=== PATIENT | female | born 1955 ===

== ENCOUNTER 2018-03-22 17:59 | Emergency (ER) | payer MEDICARE, OTHER ==
[2018-03-22 18:11] VITALS: BMI 27.3
--- NOTE | 2018-03-22 19:41 | C.PDOC ---
History Of Present Illness 62 year old female presents to ED for evaluation after a fall that occurred earlier today. Patient reports walking on the street when she tripped and fell forward, landing on her left side. Although she says she fell on her left side, she is currently complaining of right shoulder, right elbow, right lower rib pain. Patient denies head injury, loss of consciousness, neck pain, chest pain, dizziness, palpitations. Time Seen by Provider: 03/22/18 18:52 Chief Complaint (Nursing): Upper Extremity Problem/Injury History Per: Patient History/Exam Limitations: no limitations Onset/Duration Of Symptoms: Hrs Current Symptoms Are (Timing): Still Present Quality: "Pain" Severity: Moderate Past Medical History Reviewed: Historical Data, Nursing Documentation, Vital Signs Vital Signs: Last Vital Signs Temp 98.5 F 03/22/18 18:11 Pulse 121 H 03/22/18 18:11 Resp 20 03/22/18 18:11 BP 167/96 H 03/22/18 18:11 Pulse Ox 94 L 03/22/18 18:11 - Medical History PMH: Anxiety, Asthma, Bronchitis, COPD (RECENT EXACERBATION WAS RXED IV AB), Diabetes, HTN, Pneumonia (STREPT), TIA Surgical History: Cholecystectomy - [facility] Procedures EXCISION OF POST NECK SUBCU/FASCIA, OPEN APPROACH (03/15/16) OTHER SKIN & SUBQ I D (02/01/14) VENOUS CATHETERIZATION NEC (11/01/13) Family History: States: No Known Family Hx - Social History Hx Tobacco Use: No Hx Alcohol Use: No Hx Substance Use: No - Immunization History Hx Tetanus Toxoid Vaccination: No Hx Influenza Vaccination: No Hx Pneumococcal Vaccination: Yes Review Of Systems Constitutional: Negative for: Fever, Chills Cardiovascular: Negative for: Chest Pain, Palpitations Musculoskeletal: Positive for: Shoulder Pain (Right shoulder), Arm Pain (Right elbow), Other (Right lower rib pain). Negative for: Neck Pain Neurological: Positive for: Other (No loss of consciousness, no head injury). Negative for: Weakness, Numbness, Headache, Dizziness Physical Exam - Physical Exam Appears: Well, Non-toxic, Other (In mild pain) Skin: Warm, Dry Head: Atraumatic, Normacephalic Eye(s): bilateral: Normal Inspection, PERRL, EOMI Oral Mucosa: Moist Neck: Supple Cardiovascular: Rhythm Regular ( tachycardic (chronic) ) Respiratory: Normal Breath Sounds, No Rales, No Rhonchi, No Wheezing Gastrointestinal/Abdominal: Normal Exam, Bowel Sounds, Soft, No Tenderness Extremity: Normal ROM, Tenderness (Tenderness to palpitation to right anterior shoulder, right proximal humerus, and right lower ribs (approx ribs 10-11 at nipple line).), No Pedal Edema, No Calf Tenderness Pulses: Left Radial: Normal, Right Radial: Normal Neurological/Psych: Oriented x3, Normal Motor, Normal Sensation ED Course And Treatment O2 Sat by Pulse Oximetry: 94 (RA) Pulse Ox Interpretation: Normal - Other Rad Ribs with chest x-ray X-Ray: Viewed By Me, Read By Radiologist Interpretation: FINDINGS: RIGHT RIBS: No appreciable displaced right rib fracture deformity. LUNGS: No focal consolidation. Please note that chest x- ray has limited sensitivity for the detection of pulmonary masses. PLEURA: No significant pleural effusion. No definite pneumothorax. CARDIOVASCULAR: Heart size appears within normal limits. OTHER FINDINGS: Degenerative changes of the spine. Acute fracture of the right humerus re-identified. Right upper quadrant surgical clips. IMPRESSION: Re-identified acute fracture of the right humerus. No appreciable right rib fracture. X-ray right elbow X-Ray: Viewed By Me, Read By Radiologist Interpretation: FINDINGS: BONES: Acute fracture deformity of the right humerus/humeral head. The distal clavicle and underlying ribs appear intact. Osseous demineralization. JOINTS: No acute dislocation. SOFT TISSUES: Soft tissue swelling. Ovoid density, likely calcification, measuring approximately 0.6 x 1.6 cm adjacent to the radial head. No evidence of radiopaque foreign body. IMPRESSION: Acute fracture deformity of the proximal humerus/humeral head. Soft tissue swelling. Ovoid density, likely calcification, measuring approximately 0.6 x 1.6 cm adjacent to the radial head. Correlate with physical exam. Findings discussed with Dr. Sequeira on 03/22/18 at 8:41 p.m.. X-ray right shoulder X-Ray: Interpreted by Me, Viewed By Me, Read By Radiologist Interpretation: FINDINGS: BONES: Acute fracture deformity of the right humerus/humeral head. The distal clavicle and underlying ribs appear intact. Osseous demineralization. JOINTS: No acute dislocation. SOFT TISSUES: Soft tissue swelling. Ovoid density, likely calcification, measuring approximately 0.6 x 1.6 cm adjacent to the radial head. No evidence of radiopaque foreign body. IMPRESSION: Acute fracture deformity of the proximal humerus/humeral head. Soft tissue swelling. Ovoid density, likely calcification, measuring approximately 0.6 x 1.6 cm adjacent to the radial head. Correlate with physical exam. Findings discussed with Dr. Sequeira on 03/22/18 at 8:41 p.m.. xx-ray right humerus X-Ray: Viewed By Me, Read By Radiologist Interpretation: FINDINGS: BONES: Acute fracture deformity of the right humerus/humeral head. The distal clavicle and underlying ribs appear intact. Osseous demineralization. JOINTS: No acute dislocation. SOFT TISSUES: Soft tissue swelling. Ovoid density, likely calcification, measuring approximately 0.6 x 1.6 cm adjacent to the radial head. No evidence of radiopaque foreign body. IMPRESSION: Acute fracture deformity of the proximal humerus/humeral head. Soft tissue swelling. Ovoid density, likely calcification, measuring approximately 0.6 x 1.6 cm adjacent to the radial head. Correlate with physical exam. Findings discussed with Dr. Sequeira on 03/22/18 at 8:41 p.m.. Progress Note: Xrays of ribs/chest, right shoulder, right humerus, right elbow ordered and reviewed. Patient given PO tylenol. Patient reassesed, still had pain - PO Vicodin given. Xray show fx of proximal humerus. Coaptation/sugartong splint placed by soil technologist and checked by me, (+) NV intact. Patient also placed in sling. She was given Rxs for pain medication, and instructed to follow up with orthopedics within 1 week. She understands she should return to ED if symptoms worsen. Reevaluation Time: 20:40 Reassessment Condition: Improved Disposition Counseled Patient/Family Regarding: Studies Performed, Diagnosis, Need For Followup, Rx Given - Disposition Referrals: Ava Castro MD [Staff Provider] - Jaime Herndon, DNP, G[employer] OR PETROLEUM OPERATOR [Advanced Practice Nurse] - Disposition: HOME/ ROUTINE Disposition Time: 20:40 Condition: STABLE Additional Instructions: FOLLOW UP WITH ORTHOPEDICS WITHIN 1 WEEK USE PAIN MEDICATIONS NEEDED RETURN TO ER IF SYMPTOMS WORSEN Prescriptions: Hydrocodone/Acetaminophen [Hydrocodone-Acetamin 5-325 mg] 1 each PO Q6 PRN #15 tablet PRN Reason: PAIN Instructions: Shoulder Fracture (DC) Forms: [facility] (Yi) Print Language: UKRAINIAN - POA Present On Arrival: Falls Or Trauma - Clinical Impression Clinical Impression: Right humeral fracture, Contusion of rib on right side - Scribe Statement The provider has reviewed the documentation as recorded by the Flaca Richardsoned Provider Attestation: All medical record entries made by the Flaca were at my direction and personally dictated by me. I have reviewed the chart and agree that the record accurately reflects my personal performance of the history, physical exam, medical decision making, and the department course for this patient. I have also personally directed, reviewed, and agree with the discharge instructions and disposition.
[2018-03-22] MEDS ORDERED: Hydrocodone/Acetaminophen 5 mg /300 mg Tab PO STA (20:32)
[2018-03-22] MEDS ORDERED: Hydrocodone/Acetaminophen 5 mg /300 mg Tab PO ONE (20:41)
--- NOTE | 2018-03-22 20:48 | RAD ---
PROCEDURE: Radiographs of the right shoulder. Radiographs of the right humerus. Radiographs of the right elbow. HISTORY: right shoulder pain after fall COMPARISON: Right shoulder radiographs performed 09/17/16 FINDINGS: BONES: Acute fracture deformity of the right humerus/humeral head. The distal clavicle and underlying ribs appear intact. Osseous demineralization. JOINTS: No acute dislocation. SOFT TISSUES: Soft tissue swelling. Ovoid density, likely calcification, measuring approximately 0.6 x 1.6 cm adjacent to the radial head. No evidence of radiopaque foreign body. IMPRESSION: Acute fracture deformity of the proximal humerus/humeral head. Soft tissue swelling. Ovoid density, likely calcification, measuring approximately 0.6 x 1.6 cm adjacent to the radial head. Correlate with physical exam. Findings discussed with Dr. Sequeira on 03/22/18 at 8:41 p.m..
--- NOTE | 2018-03-22 20:51 | RAD ---
Date of service: 03/22/2018 PROCEDURE: Radiographs of the Chest and Right Ribs. HISTORY: right lower rib pain after fall COMPARISON: None available. TECHNIQUE: Frontal radiograph of the chest and multiple oblique radiographs of the right ribs were obtained. FINDINGS: RIGHT RIBS: No appreciable displaced right rib fracture deformity. LUNGS: No focal consolidation. Please note that chest x-ray has limited sensitivity for the detection of pulmonary masses. PLEURA: No significant pleural effusion. No definite pneumothorax. CARDIOVASCULAR: Heart size appears within normal limits. OTHER FINDINGS: Degenerative changes of the spine. Acute fracture of the right humerus re-identified. Right upper quadrant surgical clips. IMPRESSION: Re-identified acute fracture of the right humerus. No appreciable right rib fracture.
[2018-03-22 21:39] VITALS: BP 152/85; PULSE 103; RESP 18; TEMP 98.7
[2018-03-25 13:38] VITALS: O2SAT 94
== END 2018-03-22 21:51 | disposition home or self-care (01) ==
LOC: C.ER 17:59
DX: S20.211A Contusion of right front wall of thorax, initial encounter (principal); S42.201A Unspecified fracture of upper end of right humerus, initial encounter for closed fracture; W01.0XXA Fall on same level from slipping, tripping and stumbling without subsequent striking against object, initial encounter; Y93.01 Activity, walking, marching and hiking; Y92.410 Unspecified street and highway as the place of occurrence of the external cause; I10 Essential (primary) hypertension; E11.9 Type 2 diabetes mellitus without complications; J44.9 Chronic obstructive pulmonary disease, unspecified; Z86.73 Personal history of transient ischemic attack (TIA), and cerebral infarction without residual deficits